=== PATIENT | female | born 1970 | race Caucasian/White ===

== ENCOUNTER → 2023-01-29 | Day surgery (SDC) | payer OTHER ==
[~2023-01-29] VITALS: Ht 175.2 cm; Wt 99.8 kg
[~2023-01-29] MED LIST: ASPIRIN81 M1 PO; CIPROFLOXACIN500 MG PO; LIPITOR80 MG PO; LOSARTAN POTASS50 M1 PO; SINGULAIR10 M1 PO; TOPROL XL100 MG PO; VENLAFAXINE150 MG PO
[2023-01-29 07:30] VITALS: BP 141/79
[2023-01-29 08:40] VITALS: BP 116/74
[2023-01-29 08:55] VITALS: BP 120/73
[2023-01-29 09:10] VITALS: BP 106/61
== END ==
LOC: SDC 01-25 11:00
PROVIDERS: ATTEND Specialist
DX: H65.493 Other chronic nonsuppurative otitis media, bilateral (principal); J32.9 Chronic sinusitis, unspecified; J34.2 Deviated nasal septum; J30.1 Allergic rhinitis due to pollen; I10 Essential (primary) hypertension; E78.00 Pure hypercholesterolemia, unspecified; F41.9 Anxiety disorder, unspecified; F32.A Depression, unspecified; Z90.710 Acquired absence of both cervix and uterus; Z79.899 Other long term (current) drug therapy